=== PATIENT | female | born 1990 | race Caucasian/White ===

== ENCOUNTER 2017-02-16 06:00 | Inpatient (IN) ==
[2017-02-16] MEDS ORDERED: Metoclopramide 10 MG/2 ML VIAL IVP PRN (06:26)
[2017-02-16] MEDS ORDERED: miSOPROStol 100 MCG TABLET PO ONE (06:26)
[2017-02-16] MEDS ORDERED: Famotidine 20 MG/2 ML VIAL IVP PRN (06:26)
[2017-02-16] MEDS ORDERED: Ondansetron 4 MG/2 ML VIAL IVP PRN (06:26)
[2017-02-16] MEDS ORDERED: Naloxone 0.4 MG/ML INJ IVP PRN (06:26)
[2017-02-16 06:48] LABS: Basophils % 0.5 %; Eosinophils # 0.2 K/mcL (0.0-0.6); Eosinophils % 3.4 %; Hematocrit 36.4 % (35.3-44.9); Hemoglobin 12.1 g/dL (11.5-15.4); Immature Granulocytes % 0.8 % (0-4); Lymphocytes % 32.6 %; Mean Corpuscular HGB Conc 33.2 g/dL (31.6-35.5); Mean Corpuscular Hemoglobin 30.3 pg (28.0-33.3); Mean Platelet Volume 10.1 fL (9.4-12.4); Monocytes # 0.5 K/mcL (0.0-1.3); Monocytes % 8.1 %; Neutrophils # 3.4 K/mcL (1.6-8.9); Platelet Count 247 K/mcL (140-400); Red Cell Distribution Width 13.2 % (11.5-14.5); Segmented Neutrophils % 54.6 %
[2017-02-16] MEDS: Ringers Solution, Lactated 1,000 ML IVC SCH ×2 (06:57→15:01)
--- NOTE | 2017-02-16 07:17 | OB/GYN History & Physical ---
Date of Encounter: 02/16/17 Time of Encounter: 07:12 Assessment and Plan (1) 39 weeks gestation of Current visit: Yes Status: Acute induction of labor due to placental abnormality and SGA oral cytotec nubain prn epidural if desired anticipate vaginal delivery (2) High risk , antepartum Current visit: Yes Status: Acute (3) Small for gestational age fetus affecting management of mother in salmon in third trimester Current visit: Yes Status: Acute (4) Placental abnormality in third trimester Current visit: Yes Status: Acute (5) Anemia affecting in third trimester Current visit: Yes Status: Acute History of Present Illness Chief complaint: induction HPI: Ms. Tejada is a 26 year old female at 39.2 weeks gestation here for induction of labor due to placental abnormality and small for gestational age fetus. Her was complicated by the aforementioned items. She denies vaginal bleeding, loss of fluid, dizziness, blurred vision, headache. Good movement. Labs: negative: GBS, HIV, Hep B, syphilis, chlamydia, gonorrhea immune: rubella nonimmune: VZV Past Med Surg Social Fam HX - Past Medical History Medical history: asthma Psychiatric history: no psych history - Past Surgical History Surgical History: other (Bilateral breast implants 2016) - Social History Smoking Status: Never smoker Smokeless Tobacco Status: No Alcohol use: none Drug use: none - Family History Brother Age: 30 Living Status: Still Living Hx Family Cardiac Disorders: No Hx Family Respiratory Disorders: No Hx Family Cancer: No Hx Family GI Disorders: No Hx Family Genitourinary Disorders: No Hx Family Endocrine Disorder: No Hx Family Musculoskeletal Disorders: No Hx Family Neuromuscular Disorders: No Hx Family Neurologic Disorders: No Hx Family HEENT Disorders: No Hx Family Autoimmune Disorders: No Hx Family Reproductive Disorders: No Hx Family Psychosocial Disorders: No Hx Family Medical Disorders: No Obstetrical History - Pregnancies : 4 Para: 2 Term: 2 : 0 Ab's: 2 Livin Medications and Allergies Ferrous Sulfate 324 mg PO DAILY 02/16/17 [History] Tablet 1 tab PO DAILY 02/16/17 [History] Symbicort 160/4.5 IH BID 02/16/17 [History] Zantac 150 mg PO DAILY 02/16/17 [History] Allergies No Known Allergies Allergy (Verified 02/16/17 06:32) Review of System OB All systems PM: reviewed and no additional remarkable complaints except as stated - Constitutional Constitutional ROS IM: as per HPI Exam - Vital Signs Vital signs: Initial Vital Signs Temp Pulse Resp BP 98.7 F 87 16 131/86 02/16/17 06:41 02/16/17 06:41 02/16/17 06:41 02/16/17 06:41 - Constitutional Constitutional: well developed, well nourished, no acute distress, average body habitus - HEENT HEENT: Normocephaly, Mucus Membranes Moist - Neck Neck exam: normal inspection - Lungs Respiratory exam: CTAB - Cardiovascular Cardiovascular exam: RRR, +S1, +S2 - Breasts Breast: bilateral: normal - Abdomen Abdomen: Present: bowel sounds normal, gravid, non tender - Extremities Extremities exam: normal capillary refill, normal inspection Results Result Diagrams: 02/16/17 06:30 All other labs normal. - VTE Reasons for not Prescribing Prophylaxis: Treatment not Indicated - Low risk for VTE - Attending Attestation I examined this patient and my medical decision-making was reviewed with the Resident Physician. I agree with the documented findings, disposition and treatment plan as described except to the extent set forth below.
--- NOTE | 2017-02-16 07:36 | Anesthesia Evaluation PreOp ---
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 Any Significant HX Other Medical History: Other (heartburn during ) Anesthesia History: No Prior Anesthetic Complications, Past Anesthesia (breast augmentation) : Yes (, 39 weeks) Alcohol Use: none Drug use: none Medications and Allergies Ferrous Sulfate 324 mg PO DAILY 02/16/17 [History] Tablet 1 tab PO DAILY 02/16/17 [History] Symbicort 160/4.5 IH BID 02/16/17 [History] Zantac 150 mg PO DAILY 02/16/17 [History] Allergies No Known Allergies Allergy (Verified 02/16/17 06:32) - Meds/Allergy Pre-op Review Medications Reviewed: Yes Allergies Reviewed: Yes Beta Blockers on Current Med List: No Anesthesia Results - Labs 02/16/17 06:30 Anesthesia Exam O2 Sat Height 1.57 m Height 1.57 m Weight 58 kg Weight 58 kg Vital Signs Temp Pulse Resp BP 98.7 F 87 16 131/86 02/16/17 06:41 02/16/17 06:41 02/16/17 06:41 02/16/17 06:41 Height: 62 Weight: 58 - HEENT Pupil (Motor): Pupils equal Mallampati: II Teeth: Missing Oral Opening: Greater than 3 - BUTADIENE COMPRESSOR OPERATOR LOC: Oriented BUTADIENE COMPRESSOR OPERATOR Motor: Normal RUE, Normal LUE, Normal RLE, Normal LLE, Normal Face BUTADIENE COMPRESSOR OPERATOR Sensory: Normal: RUE, LUE, RLE, LLE, Face - Cardiac Rhythm: Regular Murmur: None JVD: No Carotid Bruit: No - Pulmonary Breath Sounds: bilateral Clear Respiratory Effort: Symmetrical Anesthesia Assess/Plan ASA Score: 2 Modified Boody Scale for Level of Consciousness: Cooperative, oriented, and tranquil Anesthetic Plan: Regional Monitoring Plan: Standard Monitors
--- NOTE | 2017-02-16 09:18 | OB Labor Progress Note ---
Date of Encounter: 02/16/17 Time of Encounter: 09:15 Labor Progress Note - Subjective Subjective: Pt comfortable and not appreciating ctx - Vital Signs Vital Signs: afeb, VSS - Cervix Cervix: 3-4/70/-2 vtx - Heart Tones Heart Tones: 130s baseline, CAT1 - [place]: Irreg post cytotec 50 mcg po - Interventions Interventions: 39 wk induction, SGA - Plan Plan: IOL, anticipate vaginal delivery
[2017-02-16] MEDS ORDERED: Oxytocin 20 units/ LR 1000 mL 20 UNIT/1,000 ML BAG IVC SCH ×2 (11:30→20:25)
[2017-02-16] MEDS ORDERED: Oxytocin 20 units/ LR 1000 mL 20 UNIT/1,000 ML BAG IVC ONE (11:31)
[2017-02-16] MEDS ORDERED: *HR* FentaNYL (PF) 100 MCG/2 ML VIAL ONE (11:49)
[2017-02-16] MEDS ORDERED: *HR* Ropivacaine/PF 0.2% 10 ML AMPUL ONE (11:49)
[2017-02-16] MEDS ORDERED: Epidural Premix (fent/bupiv) 110 ML EP ONE (11:50)
--- NOTE | 2017-02-16 12:15 | Anesthesia Procedures ---
Date of Encounter: 02/16/17 Time of Encounter: 12:13 Procedures: Anesthesia - Epidural/Spinal Patient ID/Chart reviewed: Yes Patient examined: Yes OB Eval: Gestational age: 39 OB Eval: : 4 OB Eval: Hx Para: 2 OB Eval: Dilated at (cm): 3 OB Eval: Contractions: Non-stressed pattern Consent Obtained: Yes Supplemental Oxygen: None/Room Air Site Prep: Aseptic Technique, 0.5% Chlorhexidine/Alcohol Patient position: upright Local Anesthetic: Lidocaine 1% Amount of Local Anesthetic used: 3 Touhy Needle Gauge: 18 Touhy Needle Depth (cm): 4 Catheter Depth at Skin (cm): 10 Test Dose (1.5% Lido + Epi): Volume given (mls): 3 Test Dose Result: Negative Loading Dose: Fentanyl (mcg): 100 Loading Dose: Other: 0.2% ropivicaine 4cc, 2cc nss Loading Dose Administered: Thru Touhy Needle Infusion Med: 0.125% Bupivacaine w/ 2 mcg/ml Fentanyl Infusion Rate (mls/hr): [address]: Tegaderm Interspace Used: L3-L4 Loss of Resistance (ANGELA): Yes Blood: No CSF: No Paresthesia: No
--- NOTE | 2017-02-16 13:54 | OB Labor Progress Note ---
Date of Encounter: 02/16/17 Time of Encounter: 13:52 Labor Progress Note - Subjective Subjective: Patient resting comfortably in bed after epidural. Not feeling contractions. - Vital Signs Vital Signs: VSS - Cervix Cervix: 4/70/-2 posterior firm vertex palpated LOT - Heart Tones Heart Tones: 130's with moderate variability and 15x15 accels with no decels. Category I - [employer]: Contractions every 2-3 minutes 60 seconds in length. Palpate moderate. uterus palpates soft between contractions. - Plan Plan: Continue routine labor management Epidural in place and providing good pain control Pitocin augmentation infusing per IV - currently running at 8mu/min Consider SROM Anticipate vaginal delivery POC per consult with Dr Guerrero.
--- NOTE | 2017-02-16 16:21 | OB Labor Progress Note ---
Date of Encounter: 02/16/17 Time of Encounter: 16:17 Labor Progress Note - Subjective Subjective: Patient resting comfortably in bed. - Vital Signs Vital Signs: VSS - Cervix Cervix: 4/80/-1 midposition soft vertex palpates OA acynclitic - Heart Tones Heart Tones: FHTs 140's with moderate variability and 15 x 15 accels and no decels. Category I tracing - [place]: Contractions every 2-3 minutes 60 seconds in length. - Plan Plan: Continue routine labor management Pitocin currently infusing at 10mu/min Consider AROM Anticipate vaginal delivery POC per consult with Dr Guerrero.
--- NOTE | 2017-02-16 17:07 | OB Labor Progress Note ---
Date of Encounter: 02/16/17 Time of Encounter: 17:04 Labor Progress Note - Subjective Subjective: Patient resting comfortably in bed - Vital Signs Vital Signs: VSS - Cervix Cervix: 5/80/-1 Posterior soft Nitrazine positive. Small amount of clear fluid. - Heart Tones Heart Tones: 120's moderate variability with 15 x 15 accels and occasional variables. - [place]: Contractions every 2-3 minutes 60 seconds in length. - Plan Plan: Continue routine labor management Pitocin currently infusing at 10mu/min SROM prior to most recent exam for small amount of clear fluid Anticipate vaginal delivery POC per consult with Dr Guerrero
[2017-02-16] MEDS ORDERED: Lidocaine/EPI 1:100k 1% 50 ML VIAL INFILT ONE (18:56)
[2017-02-16] MEDS ORDERED: Lidocaine/EPI 1:100k 1% 20 ML VIAL INFILT ONE (18:56)
--- NOTE | 2017-02-16 19:49 | OB/GYN Procedure Note ---
Delivery - Delivery Date: 02/16/17 Provider: Jennifer Guerrero Intrapartum events: none Delivery induction: misoprostol Delivery augmentation: pitocin Delivery monitor: external FHT, external uterine Anesthesia: intravenous, epidural Estimated Blood Loss: 100 - (s) A Infant Delivery Date: 02/16/17 Delivery Time: 19:19 Presentation: vertex Position: AUGSTINA Route of delivery: Gender: Male Viability: Viable Pounds: 6 Ounces: 7 Weight Gram: 2.91 kg at 1 minute: 8 at 5 mins: 9 Shoulder Dystocia: not encountered Specimens collected: cord blood Placenta: spontaneous, uterine exploration Cord: 3 umbilical vessels - Repair Episiotomy: none Laceration Description: None - Complications Delivery complications: none Delivery comments: The patient was complete and pushing with epidural anesthesia with a spontaneous vaginal delivery in the AGUSTINA position of a vigorous male weighing 6 lbs. 7oz. with Apgars of 8 at 1 minute and 9 at 5 [address] was placed on the maternal abdomen. The cord was clamped and cut after pulsations ceased. Cord blood was obtained. The placenta was delivered spontaneous and intact. The perineum, vagina and cervix were inspected and there were no lacerations visible. The uterus was palpated internally and there were no retained products of conception. Estimated blood loss 100 mL, complications none - Disposition Mom disposition: stable in LDR [place] disposition: stable in LDR
[2017-02-16] MEDS ORDERED: Rho Immune Globulin 1,500 UNIT SYRINGE IM PRN (20:25)
[2017-02-16] MEDS ORDERED: Measles/Mumps/Rubella Vacc 0.5 ML VIAL SQ PRN (20:25)
[2017-02-16] MEDS: Ibuprofen 600 MG TABLET PO SCH (20:57)
[2017-02-16] MEDS ORDERED: Pramoxine 15 GM FOAM Package TP SCH (21:00)
[2017-02-17] MEDS: Ibuprofen 600 MG TABLET PO SCH ×4 (05:02→19:28)
[2017-02-17 05:51] LABS: Basophils % 0.3 %; Eosinophils # 0.2 K/mcL (0.0-0.6); Eosinophils % 2.2 %; Hematocrit 32.7 % (35.3-44.9); Hemoglobin 10.8 g/dL (11.5-15.4); Immature Granulocytes % 0.6 % (0-4); Lymphocytes # 2.8 K/mcL (0.6-4.6); Lymphocytes % 25.6 %; Mean Corpuscular Hemoglobin 29.8 pg (28.0-33.3); Mean Corpuscular Volume 90.3 fL (83.0-100.0); Mean Platelet Volume 9.9 fL (9.4-12.4); Monocytes % 9.4 %; Neutrophils # 6.7 K/mcL (1.6-8.9); Platelet Count 218 K/mcL (140-400); Red Blood Count 3.62 M/mcL (3.82-4.97); Red Cell Distribution Width 13.2 % (11.5-14.5); Segmented Neutrophils % 61.9 %
[2017-02-17] MEDS: Acetaminophen 325 MG TABLET PO PRN ×2 (08:24→15:45)
[2017-02-17 08:48] VITALS: BP 109/76
--- NOTE | 2017-02-17 08:58 | Discharge Summary ---
Date of Encounter: 02/17/17 Time of Encounter: 08:56 - Discharge Diagnosis (1) Vaginal delivery Priority: Primary Status: Acute Comments: Meeting all milestones, bottlefeeding, pain well managed, desires discharge (2) Anemia, Priority: Primary Status: Acute - Discharge Medications Prescriptions: Docusate [Colace] 100 mg PO BID #60 Ferrous Sulfate 325 mg PO DAILY #60 tab Ibuprofen [Motrin] 600 mg PO Q6H #60 tab Home Medications: Tablet 1 tab PO DAILY 02/16/17 [History] Symbicort 160/4.5 IH BID 02/16/17 [History] Zantac 150 mg PO DAILY 02/16/17 [History] Acetaminophen [Tylenol] 650 mg PO Q6HR PRN tab 02/17/17 [Rx] Docusate [Colace] 100 mg PO BID #60 02/17/17 [Rx] Ferrous Sulfate 325 mg PO DAILY #60 tab 02/17/17 [Rx] Ibuprofen [Motrin] 600 mg PO Q6H #60 tab 02/17/17 [Rx] Pramoxine [Proctofoam] 1 appl TP TID 02/17/17 [Rx] Vit/FA 1 each PO DAILY tab 02/17/17 [Rx] Allergies/Adverse Reactions: Allergies No Known Allergies Allergy (Verified 02/16/17 06:32) Data Procedures and tests throughout hospitalization: Laboratory Tests 02/16/17 02/17/17 06:30 05:39 WBC 6.2 10.8 D RBC 4.00 3.62 L Hgb 12.1 10.8 L Hct 36.4 32.7 L MCV 91.0 90.3 MCH 30.3 29.8 MCHC 33.2 33.0 RDW 13.2 13.2 Plt Count 247 218 MPV 10.1 9.9 Immature Gran % 0.8 0.6 Seg Neutrophils % 54.6 61.9 Lymphocytes % 32.6 25.6 Monocytes % 8.1 9.4 Eosinophils % 3.4 2.2 Basophils % 0.5 0.3 Neutrophils # 3.4 6.7 Lymphocytes # 2.0 2.8 Monocytes # 0.5 1.0 Eosinophils # 0.2 0.2 Basophils # 0.0 0.0 Labs on day of discharge: Labs from last 24 hours 02/17/17 05:39 WBC 10.8 D RBC 3.62 L Hgb 10.8 L Hct 32.7 L MCV 90.3 MCH 29.8 MCHC 33.0 RDW 13.2 Plt Count 218 MPV 9.9 Immature Gran % 0.6 Seg Neutrophils % 61.9 Lymphocytes % 25.6 Monocytes % 9.4 Eosinophils % 2.2 Basophils % 0.3 Neutrophils # 6.7 Lymphocytes # 2.8 Monocytes # 1.0 Eosinophils # 0.2 Basophils # 0.0 Date of admission: 02/16/17 06:24 Primary care physician: Freda Curran DO Consults: 02/16/17 20:25 Consult to In Home Baby Sitter [CONS] Routine Comment: Vaginal delivery, consult needed Discharging clinician: Belia Akbar Anticipated date of discharge: 02/17/17 - Patient Status Disposition: Home, Self-Care Condition: Good Functional capacity at discharge: independent ambulation Overall status at discharge: patient is back to baseline - Discharge Instructions Instructions: Anemia (GEN) Follow Up With: Freda Curran DO [Primary Care Provider] - Jennifer Guerrero MD [Partnered Physician] - - Diet and Activity Activity: resume usual activities as tolerated Diet: regular diet Hospital Course Reason for admission: IUP at term Delivery: Episiotomy: none Laceration: none Other procedures: none complications: none Discharge diagnosis: IUP at term delivered [place] baby: male Hospital course: Delivery - Delivery Date: 02/16/17 Provider: Jennifer Gurerero Intrapartum events: none Delivery induction: misoprostol Delivery augmentation: pitocin Delivery monitor: external FHT, external uterine Anesthesia: intravenous, epidural Estimated Blood Loss: 100 - (s) Infant A Infant Delivery Date: 02/16/17 Delivery Time: 19:19 Presentation: vertex Position: AGUSTINA Route of delivery: Gender: Male Viability: Viable Pounds: 6 Ounces: 7 Weight Gram: 2.91 kg at 1 minute: 8 at 5 mins: 9 Shoulder Dystocia: not encountered Specimens collected: cord blood Placenta: spontaneous, uterine exploration Cord: 3 umbilical vessels - Repair Episiotomy: none Laceration Description: None - Complications Delivery complications: none Delivery comments: The patient was complete and pushing with epidural anesthesia with a spontaneous vaginal delivery in the AGUSTINA position of a vigorous male infant weighing 6 lbs. 7oz. with Apgars of 8 at 1 minute and 9 at 5 minutes. was placed on the maternal abdomen. The cord was clamped and cut after pulsations ceased. Cord blood was obtained. The placenta was delivered spontaneous and intact. The perineum, vagina and cervix were inspected and there were no lacerations visible. The uterus was palpated internally and there were no retained products of conception. Estimated blood loss 100 mL, complications none - Disposition Mom disposition: stable in PP and appropriate for discharge Time Attestation: Total time spent providing and/or coordinating discharge services: Time Spent: Less than 30 minutes Exam - Constitutional Vitals: Temp Pulse Resp BP Pulse Ox 97.6 F 72 12 109/76 99 02/17/17 08:36 02/17/17 08:36 02/17/17 08:36 02/17/17 08:36 02/17/17 08:36 General appearance IM: A&O X 3 - Respiratory Respiratory exam: Present: CTAB - Cardiovascular Cardiovascular exam IM: Present: RRR - GI/Abdominal GI/Abdominal exam IM: normal bowel sounds, soft - Uterine Tone: Firm Uterus Position: At Umbilicus - Extremities Exam Extremities exam IM: Present: normal capillary refill, normal inspection - Neurological Exam Neurological exam: normal gait, oriented X3 - Psychiatric Additional comments: reports good mood.
[2017-02-17] MEDS ORDERED: Prenatal Vit/FA 1 EACH TABLET PO SCH (09:00)
[2017-02-17] MEDS ORDERED: Famotidine 20 MG TABLET PO SCH (09:00)
== END 2017-02-17 20:55 | disposition home or self-care (01) | DRG 560 ==
LOC: 1NENULAB 06:24 → 1NENUOBS 22:20
PROVIDERS: ADMIT Obstetrics & Gynecology; ATTEND Obstetrics & Gynecology